=== PATIENT | female | born 1960 | race Caucasian/White ===

== ENCOUNTER 2022-04-10 14:48 | Outpatient (CLI) | payer BC, SELFPAY ==
--- NOTE | 2022-04-10 15:00 | CRLHL7_ITS ---
For Patients: As a result of the Century Cures Act, medical imaging exams and procedure reports are released immediately into your electronic medical record. You may view this report before your referring provider. If you have questions, please contact your health care provider. BILATERAL SCREENING MAMMOGRAM WITH COMPUTER-AIDED DETECTION AND TOMOSYNTHESIS TECHNIQUE: CC and MLO views were obtained. These mammographic images have been obtained using full-field digital technique. These mammographic images were interpreted with the benefit of computer-aided detection. Breast Tomosynthesis was used in this interpretation. COMPARISON FILM: 09/06/19, 03/03/18, 11/19/16. FINDINGS: The breasts are heterogeneously dense, which may obscure small masses IMPRESSION: There is no radiographic evidence for malignancy. ASSESSMENT: BI-RADS Category 1: Negative RECOMMENDATION: Routine screening mammogram in 1 year. A lay language report of this examination will be provided to the patient. Abad Gandhi M.D. Diagnostic Radiologist [email or web address] JAMI/Dictated by: Abad Gandhi MD @ 04/13/2022 8:54:00 AM (Electronically Signed)
== END 2022-04-10 14:49 | disposition home or self-care (01) ==
LOC: MAMMO 14:50
PROVIDERS: PCP Family Medicine; Visit Provider Family Medicine
DX: Z12.31 Encounter for screening mammogram for malignant neoplasm of breast (principal); R92.2 Inconclusive mammogram
CPT/HCPCS: 77067

== ENCOUNTER 2022-06-05 08:31 | Outpatient (CLI) | payer BC, SELFPAY | END 2022-06-05 08:32 | disposition home or self-care (01) | LOC: NFLDREF 06-06 06:39 | PROVIDERS: PCP Family Medicine; Referring Provider Family Medicine; Visit Provider Family Medicine | DX: E78.5 Hyperlipidemia, unspecified (principal); I10 Essential (primary) hypertension; M81.0 Age-related osteoporosis without current pathological fracture | CPT/HCPCS: 80053; 80061; 82306 ==

== ENCOUNTER 2023-02-19 08:15 | Outpatient (RCR) | payer BC, SELFPAY | END 2023-05-11 10:17 | disposition home or self-care (01) | PROVIDERS: PCP Family Medicine; Visit Provider Family Medicine | DX: M25.551 Pain in right hip (principal); Z51.89 Encounter for other specified aftercare | CPT/HCPCS: 97110; 97162 ==

== ENCOUNTER 2023-08-20 09:10 | Outpatient (CLI) | payer BC, SELFPAY | END 2023-08-20 09:11 | disposition home or self-care (01) | LOC: NFLDREF 08-23 15:42 | PROVIDERS: PCP Family Medicine; Referring Provider Family Medicine; Visit Provider Family Medicine | DX: I10 Essential (primary) hypertension (principal); M81.0 Age-related osteoporosis without current pathological fracture; E78.5 Hyperlipidemia, unspecified | CPT/HCPCS: 80053; 80061; 82306 ==

== ENCOUNTER 2023-12-03 07:30 | Outpatient (CLI) | payer BC, SELFPAY | END 2023-12-03 07:31 | disposition home or self-care (01) | LOC: NFLDREF 14:25 | PROVIDERS: PCP Family Medicine; Referring Provider Family Medicine; Visit Provider Family Medicine | DX: E78.5 Hyperlipidemia, unspecified (principal) | CPT/HCPCS: 80061 ==

== ENCOUNTER 2024-03-21 14:36 | Outpatient (CLI) | payer BC, SELFPAY ==
--- NOTE | 2024-03-21 14:40 | CRLHL7_ITS ---
For Patients: As a result of the Century Cures Act, medical imaging exams and procedure reports are released immediately into your electronic medical record. You may view this report before your referring provider. If you have questions, please contact your health care provider. BILATERAL SCREENING MAMMOGRAM WITH COMPUTER-AIDED DETECTION AND TOMOSYNTHESIS TECHNIQUE: CC and MLO views were obtained. These mammographic images have been obtained using full-field digital technique. These mammographic images were interpreted with the benefit of computer-aided detection. Breast Tomosynthesis was used in this interpretation. COMPARISON FILM: 04/10/22, 09/06/19, 03/03/18. FINDINGS: The breasts are heterogeneously dense, which may obscure small masses. IMPRESSION: There is no radiographic evidence for malignancy. ASSESSMENT: BI-RADS Category 2: Benign RECOMMENDATION: Routine screening mammogram in 1 year. A lay language report of this examination will be provided to the patient. Gui Bassett M.D. Diagnostic/Nuclear Medicine Radiologist [email or web address] SP/Dictated by: Gui Bassett MD @ 03/23/2024 10:02:00 AM (Electronically Signed)
== END 2024-03-21 14:37 | disposition home or self-care (01) ==
LOC: MAMMO 14:36
PROVIDERS: PCP Family Medicine; Visit Provider Family Medicine
DX: Z12.31 Encounter for screening mammogram for malignant neoplasm of breast (principal); R92.333 Mammographic heterogeneous density, bilateral breasts
CPT/HCPCS: 77063; 77067

== ENCOUNTER 2024-11-03 08:07 | Outpatient (CLI) | payer OTHER, SELFPAY | END 2024-11-03 08:08 | disposition home or self-care (01) | LOC: NFLDREF 11-08 10:36 | PROVIDERS: PCP Family Medicine; Referring Provider Family Medicine; Visit Provider Family Medicine | DX: M81.0 Age-related osteoporosis without current pathological fracture (principal); I10 Essential (primary) hypertension; E78.5 Hyperlipidemia, unspecified | CPT/HCPCS: 80053; 80061; 82306 ==